=== PATIENT | female | born 1980 | race American Indian/Alaskan Native ===

== ENCOUNTER 2019-05-03 10:25 | Inpatient (IN) | payer OTHER ==
[~2019-05-03] VITALS: Ht 157.5 cm; Wt 62.6 kg
[~2019-05-03 10:25] MED LIST: FOLIC ACID1 MG PO
[2019-05-06] MEDS ORDERED: NIFEDIPINE ER60 MG PO (07:47)
== END 2019-05-06 09:24 | disposition home or self-care (01) | DRG 833 ==
LOC: NST 10:25 → LDR 12:04 → OB/GYN 12:04 → LDR 17:50 → OB/GYN 05-04 09:55
PROVIDERS: ADMIT Obstetrics & Gynecology Maternal & Fetal Medicine
PROC: 4A1HXCZ Monitoring of Products of Conception, Cardiac Rate, External Approach (ICD-10-PCS; principal; 2019-05-03)
DX: O47.03 False labor before 37 completed weeks of gestation, third trimester (principal); Z3A.33 33 weeks gestation of pregnancy

== ENCOUNTER 2019-05-24 11:06 | Inpatient (IN) | payer OTHER ==
[~2019-05-24] VITALS: Ht 157.5 cm; Wt 63.5 kg
[~2019-05-24 11:06] MED LIST changes: +NIFEDIPINE ER60 MG PO
[2019-06-15] MEDS ORDERED: PRENATAL TABLE1 EAC1 PO (07:56)
[2019-06-15] MEDS ORDERED: LOVENOX40 MG/0.4 SUBCUTANEO (07:56)
[2019-06-15] MEDS ORDERED: IRON325 MG PO (07:57)
== END 2019-06-17 16:10 | disposition home or self-care (01) | DRG 807 ==
LOC: LDR 06-15 05:17 → OB/GYN 06-15 12:57
PROVIDERS: ADMIT Obstetrics & Gynecology
PROC: 10E0XZZ Delivery of Products of Conception, External Approach (ICD-10-PCS; principal; 2019-06-15)
PROC: 10907ZC Drainage of Amniotic Fluid, Therapeutic from Products of Conception, Via Natural or Artificial Opening (ICD-10-PCS; 2019-06-15)
PROC: 3E033VJ Introduction of Other Hormone into Peripheral Vein, Percutaneous Approach (ICD-10-PCS; 2019-06-15)
PROC: 4A1HXFZ Monitoring of Products of Conception, Cardiac Rhythm, External Approach (ICD-10-PCS; 2019-06-15)
PROC: 0W8NXZZ Division of Female Perineum, External Approach (ICD-10-PCS; 2019-06-15)
DX: O80 Encounter for full-term uncomplicated delivery (principal); Z37.0 Single live birth; Z3A.39 39 weeks gestation of pregnancy